=== PATIENT | female | born 1935 | race Caucasian/White ===

== ENCOUNTER 2018-09-13 14:15 | Inpatient (IN) | payer BC ==
[2018-09-13] MEDS: SOD CHLORIDE 0.9% 500 ML IV (15:17)
[2018-09-13 15:22] LABS: ADD MAN DIFF? NO
[2018-09-13 15:25] LABS: WHITE BLOOD COUNT 7.9 10^3/ul (4.8-10.8)
[2018-09-13 15:25] LABS: BASOPHIL # 0.1 10^3/ul (0.0-0.1); BASOPHILS % 0.9 % (0.0-2.0); EOSINOPHILS # 0.2 10^3/ul (0.0-0.5); EOSINOPHILS % 3.1 % (0.0-7.0); HEMATOCRIT 44.6 % (37.0-47.0); LYMPHOCYTES # 1.1 10^3/ul (0.8-2.9); LYMPHOCYTES % 14.1 % (15.0-51.0); MEAN CORPUSCULAR HEMOGLOBIN 26.6 pg (29.0-33.0); MEAN CORPUSCULAR HGB CONC 31.4 g/dl (32.0-37.0); MEAN CORPUSCULAR VOLUME 84.8 fl (82.0-101.0); MONOCYTE # 0.6 10^3/ul (0.3-0.9); NEUTROPHIL # 5.8 10^3/ul (1.6-7.5); NEUTROPHILS % 73.4 % (39.0-77.0); PLATELET COUNT 239 10^3/UL (140-415); RED BLOOD COUNT 5.26 10^6/ul (4.20-5.40); RED CELL DISTRIBUTION WIDTH 14.6 % (11.5-14.5)
[2018-09-13 15:43] LABS: ANION GAP 14 (5-13); BLOOD UREA NITROGEN 36 mg/dl (7-20); CALCIUM 11.1 mg/dl (8.4-10.2); CARBON DIOXIDE 28 mmol/L (21-31); CHLORIDE 105 mmol/L (97-110); CREATININE 0.91 mg/dl (0.44-1.00); GLUCOSE 145 mg/dl (70-220); INR 0.94; POTASSIUM 4.2 mmol/L (3.5-5.1); PROTIME 12.7 Sec (11.9-14.9); SODIUM 147 mmol/L (135-144)
[2018-09-13 15:54] LABS: TROPONIN-I < 0.012 ng/ml (0.000-0.120)
[2018-09-13 16:29] LABS: ADD UMIC YES; UR ASCORBIC ACID NEGATIVE (NEGATIVE); UR BACTERIA MANY /HPF (NONE SEEN); UR BILIRUBIN (Dip) NEGATIVE (NEGATIVE); UR BLOOD (Dip) NEGATIVE (NEGATIVE); UR CLARITY CLEAR (CLEAR); UR COLOR YELLOW (YELLOW); UR GLUCOSE (Dip) NEGATIVE (NEGATIVE); UR KETONES (Dip) NEGATIVE (NEGATIVE); UR LEUKOCYTE ESTERASE (Dip) 2+ Leu/ul (NEGATIVE); UR NITRITE (Dip) POSITIVE (NEGATIVE); UR RBC 2 /HPF (0-5); UR SPECIFIC GRAVITY (Dip) 1.015 (1.003-1.030); UR TOTAL PROTEIN (Dip) NEGATIVE (NEGATIVE); UR UROBILINOGEN (Dip) NEGATIVE (NEGATIVE); UR WBC 9 /HPF (0-5)
[2018-09-13] MEDS: CEFTRIAXONE 1 GM/50 ML (PMX) 50 ML IVPB (16:47)
[2018-09-13] MEDS ORDERED: ACETAMINOPHEN 325 MG TAB PO ×2 (18:00)
[2018-09-13] MEDS ORDERED: NACL 0.9% 3 ML SYG IV (18:00)
[2018-09-13] MEDS ORDERED: HYDROCODONE/APAP (5/325) TAB PO (18:00)
[2018-09-13] MEDS ORDERED: ONDANSETRON 4 MG INJ IV ×2 (18:00)
[2018-09-13] MEDS: SOD CHLORIDE 0.9% 1,000 ML IV (18:16)
[2018-09-13] MEDS ORDERED: GLUCOSE GEL 15 GRAM TUBE BUCCAL (18:30)
[2018-09-13] MEDS ORDERED: GLUCAGON 1 MG INJ IM (18:30)
[2018-09-13] MEDS ORDERED: DEXTROSE 50% 50 ML SYRINGE IV ×2 (18:30)
[2018-09-13] MEDS ORDERED: GLUCOSE GEL 15 GRAM TUBE PO ×2 (18:30)
[2018-09-13] MEDS: INSULIN ASPART [NOVOLOG] 3 ML PEN SC (21:00)
[2018-09-13] MEDS: ATORVASTATIN 40 MG TAB PO (21:33)
[2018-09-13] MEDS: MEMANTINE 10 MG TAB PO (21:33)
[2018-09-13] MEDS: AMLODIPINE 5 MG TAB PO (21:34)
[2018-09-13] MEDS: INSULIN GLARGINE [LANTus] (100 UNITS/ML) SYG SC (22:07)
[2018-09-14] MEDS: ACCU-CHEK XX (01:35)
[2018-09-14 06:19] LABS: ADD MAN DIFF? NO
[2018-09-14 06:27] LABS: BASOPHILS % 0.5 % (0.0-2.0); EOSINOPHILS # 0.4 10^3/ul (0.0-0.5); EOSINOPHILS % 5.6 % (0.0-7.0); HEMATOCRIT 41.3 % (37.0-47.0); HEMOGLOBIN 13.3 g/dl (12.0-16.0); LYMPHOCYTES # 1.3 10^3/ul (0.8-2.9); LYMPHOCYTES % 20.3 % (15.0-51.0); MEAN CORPUSCULAR HEMOGLOBIN 26.7 pg (29.0-33.0); MEAN CORPUSCULAR HGB CONC 32.2 g/dl (32.0-37.0); MEAN CORPUSCULAR VOLUME 82.9 fl (82.0-101.0); MEAN PLATELET VOLUME 10.3 fl (7.4-10.4); MONOCYTE # 0.6 10^3/ul (0.3-0.9); MONOCYTES % 9.5 % (0.0-11.0); NEUTROPHIL # 4.1 10^3/ul (1.6-7.5); NEUTROPHILS % 63.6 % (39.0-77.0); PLATELET COUNT 192 10^3/UL (140-415); RED BLOOD COUNT 4.98 10^6/ul (4.20-5.40); RED CELL DISTRIBUTION WIDTH 14.3 % (11.5-14.5)
[2018-09-14 06:27] LABS: WHITE BLOOD COUNT 6.5 10^3/ul (4.8-10.8)
[2018-09-14] MEDS: LEVOTHYROXINE 75 MCG TAB PO (06:44)
[2018-09-14 06:47] LABS: ALANINE AMINOTRANSFERASE 21 IU/L (13-69); ALBUMIN 4.2 g/dl (3.3-4.9); ALBUMIN/GLOBULIN RATIO 1.44; ALKALINE PHOSPHATASE 56 IU/L (42-121); ANION GAP 12 (5-13); ASPARTATE AMINO TRANSFERASE 21 IU/L (15-46); BLOOD UREA NITROGEN 22 mg/dl (7-20); CALCIUM 9.9 mg/dl (8.4-10.2); CARBON DIOXIDE 28 mmol/L (21-31); CHLORIDE 105 mmol/L (97-110); CHOL/HDL RATIO 4.2 RATIO; CHOLESTEROL 119 mg/dl (100-200); CREATININE 0.67 mg/dl (0.44-1.00); GLUCOSE 106 mg/dl (70-220); HDL CHOLESTEROL 28 mg/dl (33-92); LDL CHOLESTEROL,CALCULATED 46 mg/dl; MAGNESIUM 1.6 mg/dl (1.7-2.5); POTASSIUM 3.6 mmol/L (3.5-5.1); SODIUM 145 mmol/L (135-144); TOTAL PROTEIN 7.1 g/dl (6.1-8.1); TRIGLYCERIDES 223 mg/dl (0-149)
[2018-09-14 07:34] LABS: HEMOGLOBIN A1C 6.8 % (0-5.9)
[2018-09-14] MEDS: INSULIN ASPART [NOVOLOG] 3 ML PEN SC ×4 (07:55→21:00)
[2018-09-14] MEDS: ASPIRIN (EC) 81 MG TAB PO (08:42)
[2018-09-14] MEDS: CITALOPRAM 20 MG TAB PO (08:43)
[2018-09-14] MEDS: AMLODIPINE 5 MG TAB PO ×2 (08:43→21:19)
[2018-09-14] MEDS: CALCIUM CARBONATE 1.25 GM TAB PO (08:44)
[2018-09-14] MEDS: CYANOCOBALAMIN 500 MCG TAB PO (08:44)
[2018-09-14] MEDS: MEMANTINE 10 MG TAB PO ×2 (08:44→21:19)
[2018-09-14] MEDS: LOSARTAN 50 MG TAB PO (08:45)
[2018-09-14] MEDS: FLUTICASONE/VILANTEROL 100-25 INH (08:46)
[2018-09-14] MEDS: CHOLECALCIFEROL 2,000 UNIT CAP PO (12:54)
[2018-09-14] MEDS: MAGNESIUM SULFATE 2 GM/50 ML 50 ML IVPB (13:33)
[2018-09-14] MEDS: CEFTRIAXONE 1 GM/50 ML (PMX) 50 ML IVPB (17:15)
[2018-09-14] MEDS: ATORVASTATIN 40 MG TAB PO (21:19)
[2018-09-14] MEDS: INSULIN GLARGINE [LANTus] (100 UNITS/ML) SYG SC (21:36)
[2018-09-15] MEDS: ACCU-CHEK XX (02:00)
[2018-09-15] MEDS: LEVOTHYROXINE 75 MCG TAB PO (06:16)
[2018-09-15 06:34] LABS: ADD MAN DIFF? NO
[2018-09-15 06:45] LABS: BASOPHILS % 0.5 % (0.0-2.0); EOSINOPHILS # 0.3 10^3/ul (0.0-0.5); EOSINOPHILS % 5.5 % (0.0-7.0); HEMATOCRIT 42.4 % (37.0-47.0); HEMOGLOBIN 13.7 g/dl (12.0-16.0); LYMPHOCYTES # 1.3 10^3/ul (0.8-2.9); LYMPHOCYTES % 22.7 % (15.0-51.0); MEAN CORPUSCULAR HEMOGLOBIN 26.7 pg (29.0-33.0); MEAN CORPUSCULAR HGB CONC 32.3 g/dl (32.0-37.0); MEAN CORPUSCULAR VOLUME 82.5 fl (82.0-101.0); MEAN PLATELET VOLUME 10.1 fl (7.4-10.4); MONOCYTE # 0.5 10^3/ul (0.3-0.9); MONOCYTES % 9.6 % (0.0-11.0); NEUTROPHIL # 3.5 10^3/ul (1.6-7.5); NEUTROPHILS % 61.3 % (39.0-77.0); PLATELET COUNT 190 10^3/UL (140-415); RED BLOOD COUNT 5.14 10^6/ul (4.20-5.40); RED CELL DISTRIBUTION WIDTH 14.1 % (11.5-14.5)
[2018-09-15 06:45] LABS: WHITE BLOOD COUNT 5.6 10^3/ul (4.8-10.8)
[2018-09-15 07:10] LABS: ANION GAP 14 (5-13); BLOOD UREA NITROGEN 20 mg/dl (7-20); CALCIUM 9.4 mg/dl (8.4-10.2); CARBON DIOXIDE 28 mmol/L (21-31); CHLORIDE 104 mmol/L (97-110); CREATININE 0.71 mg/dl (0.44-1.00); GLUCOSE 130 mg/dl (70-220); PHOSPHORUS 4.1 mg/dl (2.5-4.9); POTASSIUM 3.6 mmol/L (3.5-5.1); SODIUM 146 mmol/L (135-144)
[2018-09-15] MEDS: INSULIN ASPART [NOVOLOG] 3 ML PEN SC ×4 (07:55→20:34)
[2018-09-15] MEDS: LOSARTAN 50 MG TAB PO (08:33)
[2018-09-15] MEDS: ASPIRIN (EC) 81 MG TAB PO (08:33)
[2018-09-15] MEDS: CALCIUM CARBONATE 1.25 GM TAB PO (08:33)
[2018-09-15] MEDS: CITALOPRAM 20 MG TAB PO (08:33)
[2018-09-15] MEDS: FLUTICASONE/VILANTEROL 100-25 INH (08:34)
[2018-09-15] MEDS: MEMANTINE 10 MG TAB PO ×2 (08:34→20:34)
[2018-09-15] MEDS: CHOLECALCIFEROL 2,000 UNIT CAP PO (08:34)
[2018-09-15] MEDS: CYANOCOBALAMIN 500 MCG TAB PO (08:34)
[2018-09-15] MEDS: AMLODIPINE 5 MG TAB PO ×2 (10:34→20:34)
[2018-09-15] MEDS: CIPROFLOXACIN 250 MG TAB PO (17:04)
[2018-09-15] MEDS: ATORVASTATIN 40 MG TAB PO (20:34)
[2018-09-15] MEDS: INSULIN GLARGINE [LANTus] (100 UNITS/ML) SYG SC (20:40)
[2018-09-16] MEDS: ACCU-CHEK XX (02:00)
[2018-09-16 05:53] LABS: ADD MAN DIFF? NO
[2018-09-16 06:02] LABS: WHITE BLOOD COUNT 7.2 10^3/ul (4.8-10.8)
[2018-09-16 06:02] LABS: BASOPHIL # 0.1 10^3/ul (0.0-0.1); BASOPHILS % 0.7 % (0.0-2.0); EOSINOPHILS # 0.4 10^3/ul (0.0-0.5); EOSINOPHILS % 5.7 % (0.0-7.0); HEMATOCRIT 41.4 % (37.0-47.0); HEMOGLOBIN 13.5 g/dl (12.0-16.0); LYMPHOCYTES # 1.5 10^3/ul (0.8-2.9); LYMPHOCYTES % 20.9 % (15.0-51.0); MEAN CORPUSCULAR HEMOGLOBIN 26.9 pg (29.0-33.0); MEAN CORPUSCULAR HGB CONC 32.6 g/dl (32.0-37.0); MEAN CORPUSCULAR VOLUME 82.5 fl (82.0-101.0); MEAN PLATELET VOLUME 10.1 fl (7.4-10.4); MONOCYTE # 0.8 10^3/ul (0.3-0.9); MONOCYTES % 11.2 % (0.0-11.0); NEUTROPHIL # 4.4 10^3/ul (1.6-7.5); NEUTROPHILS % 61.1 % (39.0-77.0); PLATELET COUNT 189 10^3/UL (140-415); RED BLOOD COUNT 5.02 10^6/ul (4.20-5.40); RED CELL DISTRIBUTION WIDTH 14.5 % (11.5-14.5)
[2018-09-16 06:31] LABS: ANION GAP 11 (5-13); BLOOD UREA NITROGEN 23 mg/dl (7-20); CARBON DIOXIDE 29 mmol/L (21-31); CHLORIDE 103 mmol/L (97-110); CREATININE 0.85 mg/dl (0.44-1.00); GLUCOSE 131 mg/dl (70-220); POTASSIUM 3.6 mmol/L (3.5-5.1); SODIUM 143 mmol/L (135-144)
[2018-09-16] MEDS: LEVOTHYROXINE 75 MCG TAB PO (06:37)
[2018-09-16] MEDS: CIPROFLOXACIN 250 MG TAB PO ×2 (06:37→18:10)
[2018-09-16] MEDS: INSULIN ASPART [NOVOLOG] 3 ML PEN SC ×4 (07:55→20:38)
[2018-09-16] MEDS: CHOLECALCIFEROL 2,000 UNIT CAP PO (09:38)
[2018-09-16] MEDS: ASPIRIN (EC) 81 MG TAB PO (09:38)
[2018-09-16] MEDS: LOSARTAN 50 MG TAB PO (09:39)
[2018-09-16] MEDS: MEMANTINE 10 MG TAB PO ×2 (09:39→20:40)
[2018-09-16] MEDS: CYANOCOBALAMIN 500 MCG TAB PO (09:39)
[2018-09-16] MEDS: CALCIUM CARBONATE 1.25 GM TAB PO (09:39)
[2018-09-16] MEDS: CITALOPRAM 20 MG TAB PO (09:40)
[2018-09-16] MEDS: FLUTICASONE/VILANTEROL 100-25 INH (09:40)
[2018-09-16] MEDS: AMLODIPINE 5 MG TAB PO ×2 (09:41→20:42)
[2018-09-16] MEDS: INSULIN GLARGINE [LANTus] (100 UNITS/ML) SYG SC (20:39)
[2018-09-16] MEDS: ATORVASTATIN 40 MG TAB PO (20:40)
[2018-09-17] MEDS: ACCU-CHEK XX (02:26)
[2018-09-17 05:35] LABS: ADD MAN DIFF? NO
[2018-09-17 05:38] LABS: WHITE BLOOD COUNT 6.4 10^3/ul (4.8-10.8)
[2018-09-17 05:38] LABS: BASOPHIL # 0.1 10^3/ul (0.0-0.1); BASOPHILS % 0.8 % (0.0-2.0); EOSINOPHILS # 0.4 10^3/ul (0.0-0.5); EOSINOPHILS % 5.9 % (0.0-7.0); HEMATOCRIT 40.7 % (37.0-47.0); HEMOGLOBIN 13.1 g/dl (12.0-16.0); LYMPHOCYTES # 1.2 10^3/ul (0.8-2.9); LYMPHOCYTES % 19.1 % (15.0-51.0); MEAN CORPUSCULAR HEMOGLOBIN 26.6 pg (29.0-33.0); MEAN CORPUSCULAR HGB CONC 32.2 g/dl (32.0-37.0); MEAN CORPUSCULAR VOLUME 82.6 fl (82.0-101.0); MONOCYTE # 0.6 10^3/ul (0.3-0.9); MONOCYTES % 9.2 % (0.0-11.0); NEUTROPHIL # 4.1 10^3/ul (1.6-7.5); NEUTROPHILS % 64.5 % (39.0-77.0); PLATELET COUNT 197 10^3/UL (140-415); RED BLOOD COUNT 4.93 10^6/ul (4.20-5.40); RED CELL DISTRIBUTION WIDTH 14.1 % (11.5-14.5)
[2018-09-17] MEDS: LEVOTHYROXINE 75 MCG TAB PO (05:45)
[2018-09-17] MEDS: CIPROFLOXACIN 250 MG TAB PO (05:45)
[2018-09-17 06:05] LABS: ANION GAP 11 (5-13); BLOOD UREA NITROGEN 19 mg/dl (7-20); CALCIUM 8.9 mg/dl (8.4-10.2); CARBON DIOXIDE 27 mmol/L (21-31); CHLORIDE 107 mmol/L (97-110); CREATININE 0.69 mg/dl (0.44-1.00); GLUCOSE 136 mg/dl (70-220); MAGNESIUM 2.1 mg/dl (1.7-2.5); PHOSPHORUS 3.2 mg/dl (2.5-4.9); POTASSIUM 3.7 mmol/L (3.5-5.1); SODIUM 145 mmol/L (135-144)
[2018-09-17] MEDS: INSULIN ASPART [NOVOLOG] 3 ML PEN SC ×4 (08:00→21:13)
[2018-09-17] MEDS: CITALOPRAM 20 MG TAB PO (09:54)
[2018-09-17] MEDS: ASPIRIN (EC) 81 MG TAB PO (09:55)
[2018-09-17] MEDS: LOSARTAN 50 MG TAB PO (09:55)
[2018-09-17] MEDS: AMLODIPINE 5 MG TAB PO ×2 (09:55→20:16)
[2018-09-17] MEDS: CYANOCOBALAMIN 500 MCG TAB PO (09:55)
[2018-09-17] MEDS: CALCIUM CARBONATE 1.25 GM TAB PO (09:55)
[2018-09-17] MEDS: MEMANTINE 10 MG TAB PO ×2 (09:55→20:14)
[2018-09-17] MEDS: CHOLECALCIFEROL 2,000 UNIT CAP PO (09:57)
[2018-09-17] MEDS: FLUTICASONE/VILANTEROL 100-25 INH (10:04)
[2018-09-17] MEDS: INSULIN GLARGINE [LANTus] (100 UNITS/ML) SYG SC (20:13)
[2018-09-17] MEDS: ATORVASTATIN 40 MG TAB PO (20:14)
[2018-09-18] MEDS: ACCU-CHEK XX (02:00)
[2018-09-18] MEDS: LEVOTHYROXINE 75 MCG TAB PO (06:29)
[2018-09-18 07:15] LABS: ADD MAN DIFF? NO
[2018-09-18 07:20] LABS: WHITE BLOOD COUNT 6.7 10^3/ul (4.8-10.8)
[2018-09-18 07:20] LABS: BASOPHIL # 0.1 10^3/ul (0.0-0.1); BASOPHILS % 0.9 % (0.0-2.0); EOSINOPHILS # 0.4 10^3/ul (0.0-0.5); EOSINOPHILS % 5.5 % (0.0-7.0); HEMATOCRIT 41.2 % (37.0-47.0); HEMOGLOBIN 13.3 g/dl (12.0-16.0); LYMPHOCYTES # 1.4 10^3/ul (0.8-2.9); LYMPHOCYTES % 21.2 % (15.0-51.0); MEAN CORPUSCULAR HEMOGLOBIN 26.7 pg (29.0-33.0); MEAN CORPUSCULAR HGB CONC 32.3 g/dl (32.0-37.0); MEAN CORPUSCULAR VOLUME 82.6 fl (82.0-101.0); MEAN PLATELET VOLUME 10.6 fl (7.4-10.4); MONOCYTE # 0.5 10^3/ul (0.3-0.9); NEUTROPHIL # 4.3 10^3/ul (1.6-7.5); NEUTROPHILS % 64.1 % (39.0-77.0); PLATELET COUNT 208 10^3/UL (140-415); RED BLOOD COUNT 4.99 10^6/ul (4.20-5.40); RED CELL DISTRIBUTION WIDTH 14.6 % (11.5-14.5)
[2018-09-18 07:55] LABS: ANION GAP 13 (5-13); BLOOD UREA NITROGEN 19 mg/dl (7-20); CARBON DIOXIDE 26 mmol/L (21-31); CHLORIDE 107 mmol/L (97-110); CREATININE 0.67 mg/dl (0.44-1.00); GLUCOSE 132 mg/dl (70-220); MAGNESIUM 2.1 mg/dl (1.7-2.5); PHOSPHORUS 3.2 mg/dl (2.5-4.9); POTASSIUM 3.8 mmol/L (3.5-5.1); SODIUM 146 mmol/L (135-144)
[2018-09-18] MEDS: INSULIN ASPART [NOVOLOG] 3 ML PEN SC ×4 (07:57→21:17)
[2018-09-18] MEDS: CYANOCOBALAMIN 500 MCG TAB PO (08:39)
[2018-09-18] MEDS: CHOLECALCIFEROL 2,000 UNIT CAP PO (08:39)
[2018-09-18] MEDS: MEMANTINE 10 MG TAB PO ×2 (08:39→20:35)
[2018-09-18] MEDS: CALCIUM CARBONATE 1.25 GM TAB PO (08:39)
[2018-09-18] MEDS: CITALOPRAM 20 MG TAB PO (08:39)
[2018-09-18] MEDS: ASPIRIN (EC) 81 MG TAB PO (08:39)
[2018-09-18] MEDS: FLUTICASONE/VILANTEROL 100-25 INH (08:39)
[2018-09-18] MEDS: LOSARTAN 50 MG TAB PO (08:39)
[2018-09-18] MEDS: AMLODIPINE 5 MG TAB PO ×2 (08:40→21:17)
[2018-09-18] MEDS: INSULIN GLARGINE [LANTus] (100 UNITS/ML) SYG SC (20:34)
[2018-09-18] MEDS: ATORVASTATIN 40 MG TAB PO (20:35)
[2018-09-19] MEDS: ACCU-CHEK XX (02:00)
[2018-09-19] MEDS: LEVOTHYROXINE 75 MCG TAB PO (06:23)
[2018-09-19] MEDS: INSULIN ASPART [NOVOLOG] 3 ML PEN SC ×4 (08:00→21:36)
[2018-09-19] MEDS: CITALOPRAM 20 MG TAB PO (08:43)
[2018-09-19] MEDS: CYANOCOBALAMIN 500 MCG TAB PO (08:46)
[2018-09-19] MEDS: LOSARTAN 50 MG TAB PO (08:46)
[2018-09-19] MEDS: AMLODIPINE 5 MG TAB PO ×2 (08:46→21:30)
[2018-09-19] MEDS: CHOLECALCIFEROL 2,000 UNIT CAP PO (08:47)
[2018-09-19] MEDS: ASPIRIN (EC) 81 MG TAB PO (08:47)
[2018-09-19] MEDS: CALCIUM CARBONATE 1.25 GM TAB PO (08:47)
[2018-09-19] MEDS: MEMANTINE 10 MG TAB PO ×2 (08:48→21:30)
[2018-09-19] MEDS: FLUTICASONE/VILANTEROL 100-25 INH (08:48)
[2018-09-19] MEDS: INSULIN GLARGINE [LANTus] (100 UNITS/ML) SYG SC (20:19)
[2018-09-19] MEDS: ATORVASTATIN 40 MG TAB PO (21:00)
[2018-09-20] MEDS: ACCU-CHEK XX (02:00)
[2018-09-20] MEDS: LEVOTHYROXINE 75 MCG TAB PO (06:16)
[2018-09-20] MEDS: INSULIN ASPART [NOVOLOG] 3 ML PEN SC ×5 (08:00→21:08)
[2018-09-20] MEDS: LOSARTAN 50 MG TAB PO (09:24)
[2018-09-20] MEDS: CHOLECALCIFEROL 2,000 UNIT CAP PO (09:24)
[2018-09-20] MEDS: CALCIUM CARBONATE 1.25 GM TAB PO (09:25)
[2018-09-20] MEDS: ASPIRIN (EC) 81 MG TAB PO (09:25)
[2018-09-20] MEDS: MEMANTINE 10 MG TAB PO ×2 (09:25→20:42)
[2018-09-20] MEDS: AMLODIPINE 5 MG TAB PO ×2 (09:26→20:42)
[2018-09-20] MEDS: CITALOPRAM 20 MG TAB PO (09:26)
[2018-09-20] MEDS: CYANOCOBALAMIN 500 MCG TAB PO (09:27)
[2018-09-20] MEDS: FLUTICASONE/VILANTEROL 100-25 INH (09:27)
[2018-09-20] MEDS: ATORVASTATIN 40 MG TAB PO (20:42)
[2018-09-20] MEDS: INSULIN GLARGINE [LANTus] (100 UNITS/ML) SYG SC (20:56)
[2018-09-21] MEDS: ACCU-CHEK XX (02:00)
[2018-09-21] MEDS: LEVOTHYROXINE 75 MCG TAB PO (06:56)
[2018-09-21] MEDS: CHOLECALCIFEROL 2,000 UNIT CAP PO (08:30)
[2018-09-21] MEDS: CYANOCOBALAMIN 500 MCG TAB PO (08:30)
[2018-09-21] MEDS: CITALOPRAM 20 MG TAB PO (08:30)
[2018-09-21] MEDS: ASPIRIN (EC) 81 MG TAB PO (08:30)
[2018-09-21] MEDS: MEMANTINE 10 MG TAB PO (08:30)
[2018-09-21] MEDS: CALCIUM CARBONATE 1.25 GM TAB PO (08:30)
[2018-09-21] MEDS: LOSARTAN 50 MG TAB PO (08:30)
[2018-09-21] MEDS: AMLODIPINE 5 MG TAB PO (08:30)
[2018-09-21] MEDS: FLUTICASONE/VILANTEROL 100-25 INH (08:31)
[2018-09-21] MEDS: INSULIN ASPART [NOVOLOG] 3 ML PEN SC ×2 (08:32→12:18)
== END 2018-09-21 17:00 | disposition home health service (06) | DRG 690 ==
LOC: PP2 09-16 16:13 → E/R 14:15 → TEL 17:41
DX: N39.0 Urinary tract infection, site not specified (principal); R55 Syncope and collapse; E86.0 Dehydration; E03.9 Hypothyroidism, unspecified; J44.9 Chronic obstructive pulmonary disease, unspecified; I10 Essential (primary) hypertension; E11.9 Type 2 diabetes mellitus without complications; E78.5 Hyperlipidemia, unspecified; F39 Unspecified mood [affective] disorder; Z86.73 Personal history of transient ischemic attack (TIA), and cerebral infarction without residual deficits; F01.50 Vascular dementia, unspecified severity, without behavioral disturbance, psychotic disturbance, mood disturbance, and anxiety; Z86.79 Personal history of other diseases of the circulatory system; Z98.890 Other specified postprocedural states
CPT/HCPCS: 36415; 70450; 71045; 80048; 80053; 80061; 81001; 82962; 83036; 83735; 84100; 84443; 84484; 85025; 85610; 93005; 93306; 93880; 96374; 97110; 97116; 97162; 97167; 97168; 97530; 97535; 99285-25